=== PATIENT | female | born 1975 | race Asian ===

== ENCOUNTER → 2017-09-17 | Outpatient (CLI) | payer BC ==
[~2017-09-17] MED LIST: CEPH-38 PO; CETI10CA PO; HYDR-3583 PO; RNT150T PO
--- NOTE | 2017-09-17 13:20 | Diagnostic Imaging Report ---
INDICATION: Mastalgia. TECHNIQUE: A targeted ultrasound of the upper-outer aspect of the left breast was performed. FINDINGS: In the 1:30 o'clock position of the left breast 7 cm from the nipple, there is a septated cyst measuring 1 x 0.8 x 1.5 cm. No other discrete solid or cystic masses are appreciated. IMPRESSION: Septated cyst in the left breast. A 6 month followup is recommended to ensure stability. ACR BI-RADS Category 3: Probably benign findings. Result letter will be mailed to the patient. Note: At least 10% of breast cancer is not imaged by mammography. Dictated by: Dictated on workstation # [id number]
--- NOTE | 2017-09-17 13:42 | Diagnostic Imaging Report ---
INDICATION: Breast pain. Comparison made with prior examination 12/09/2015. COMPARISON DATE: FINDINGS: There is a moderate amount of residual fibroglandular tissue bilaterally. There are a few benign type calcifications. There is no dominant mass, spiculated lesion or suspicious calcifications identified. The skin, nipples and axilla are unremarkable. Ultrasound was also performed of the upper outer aspect of the left breast. This demonstrates a slightly complex septated cyst. IMPRESSION: Category 3 probably benign. Six-month followup ultrasound recommended to ensure stability. ACR BI-RADS Category 3: Probably benign findings. Result letter will be mailed to the patient. Note: At least 10% of breast cancer is not imaged by mammography. Dictated by: Dictated on workstation # [id number]
== END ==
LOC: RAD 12:33
PROVIDERS: ATTEND Nurse Practitioner Family
DX: N60.02 Solitary cyst of left breast (principal)
CPT/HCPCS: 76642; 77066

== ENCOUNTER → 2018-09-26 | Outpatient (CLI) | payer BC ==
--- NOTE | 2018-09-26 14:24 | Diagnostic Imaging Report ---
Indication: Routine screening. Comparison is made with prior mammogram from 09/17/2017 and 12/09/2015. 2-D and 3-D bilateral screening mammography was performed with CAD. Both breasts are heterogeneously dense, limiting the sensitivity of mammography. The parenchymal pattern is stable. No mass or malignant appearing microcalcifications are seen. The axillae are unremarkable. Impression: BI-RADS category 1 No mammographic features suspicious for malignancy are identified. ACR BI-RADS Category 1: Negative. Result letter will be mailed to the patient. Note: At least 10% of breast cancer is not imaged by mammography. Dictated by: Dictated on workstation # [id number]
== END ==
LOC: RAD 08:51
PROVIDERS: ATTEND Family Medicine
DX: Z12.31 Encounter for screening mammogram for malignant neoplasm of breast (principal)
CPT/HCPCS: 77067

== ENCOUNTER → 2019-10-19 | Outpatient (CLI) | payer BC ==
--- NOTE | 2019-10-19 09:06 | Diagnostic Imaging Report ---
INDICATION: Routine screening. COMPARISON: 09/26/2018 and 09/17/2017. TECHNIQUE: 2D and 3D bilateral screening mammography was performed with CAD. FINDINGS: Both breasts remain heterogeneously dense, limiting the sensitivity of mammography. No mass or malignant appearing microcalcifications are seen. The axillae are unremarkable. IMPRESSION: No mammographic features suspicious for malignancy are identified. ACR BI-RADS Category 1: Negative. Result letter will be mailed to the patient. Note: At least 10% of breast cancer is not imaged by mammography. Dictated by: Dictated on workstation # [id number]
== END ==
LOC: RAD 07:38
PROVIDERS: ATTEND Family Medicine
DX: Z12.31 Encounter for screening mammogram for malignant neoplasm of breast (principal)
CPT/HCPCS: 77067

== ENCOUNTER → 2020-12-23 | Outpatient (CLI) | payer BC ==
--- NOTE | 2020-12-23 09:09 | Diagnostic Imaging Report ---
INDICATION: Routine screening. Comparison is made with prior mammogram from 10/19/2019 and 09/26/2018. 2-D and 3-D bilateral screening mammography was performed with CAD. Both breasts are heterogeneously dense, limiting the sensitivity of mammography. The parenchymal pattern is stable. No mass or malignant appearing microcalcifications are seen. Axillae are unremarkable. IMPRESSION: BI-RADS Category 1 No mammographic features suspicious for malignancy are identified. ACR BI-RADS Category 1: Negative. Result letter will be mailed to the patient. Note: At least 10% of breast cancer is not imaged by mammography. Dictated by: Dictated on workstation # [id number]
== END ==
LOC: RAD 08:02
PROVIDERS: ATTEND Family Medicine
DX: Z12.31 Encounter for screening mammogram for malignant neoplasm of breast (principal)
CPT/HCPCS: 77063; 77067

== ENCOUNTER → 2022-01-19 | Outpatient (CLI) | payer BC ==
--- NOTE | 2022-01-19 11:36 | Diagnostic Imaging Report ---
INDICATION: Routine screening. COMPARISON is made with prior mammograms from 12/23/2020 and 10/19/2019. 2-D and 3-D bilateral screening mammography was performed with CAD. Both breasts are heterogeneously dense, limiting the sensitivity of mammography. The parenchymal pattern is stable. No mass or malignant-appearing microcalcifications are seen. Axillae are unremarkable. IMPRESSION: BI-RADS Category 1 No mammographic features suspicious for malignancy are identified. ACR BI-RADS Category 1: Negative. Result letter will be mailed to the patient. Note: At least 10% of breast cancer is not imaged by mammography. Dictated by: Dictated on workstation # [id number]
== END ==
LOC: RAD 08:30
PROVIDERS: ATTEND Family Medicine
DX: Z12.31 Encounter for screening mammogram for malignant neoplasm of breast (principal)
CPT/HCPCS: 77063; 77067

== ENCOUNTER 2022-04-18 05:36 | Outpatient (CLI) | payer BC ==
[~2022-04-18] VITALS: Ht 157.5 cm; Wt 66.7 kg
== END 2022-04-18 09:01 | disposition home or self-care (01) ==
LOC: PREOP 05:36
PROVIDERS: ATTEND Internal Medicine
DX: Z01.818 Encounter for other preprocedural examination (principal)

== ENCOUNTER 2022-04-27 07:29 | Day surgery (SDC) | payer BC ==
--- NOTE | 2022-02-21 07:41 | HISTORY AND PHYSICAL ---
DATE OF SERVICE: COLONOSCOPY HISTORY AND PHYSICAL HISTORY OF PRESENT ILLNESS: The patient is a 47-year-old white female referred by Dr. Connelly for her first screening colonoscopy. Risk is difficult to ascertain as she is adopted and does not know anything about her family history. She denies abdominal pain, change in bowel habit, bright red blood per rectum, melena or change in weight. PAST MEDICAL HISTORY: Significant for hyperlipidemia with no known history of coronary artery disease. PAST SURGICAL HISTORY: Significant for a tubal ligation. FAMILY HISTORY: Unknown, see HPI. SOCIAL HISTORY: Employed at [employer]. No past smoking history and no significant alcohol intake reported. REVIEW OF SYSTEMS: CONSTITUTIONAL: Denies night sweats, chills, fever, or change in weight. GASTROINTESTINAL: As noted in the HPI. PULMONARY: No cough, wheezing or shortness of breath noted. CARDIOVASCULAR: No chest pain, orthopnea, PND, pedal edema reported. PHYSICAL EXAMINATION: GENERAL: Reveals a pleasant -appearing female in no acute distress. VITAL SIGNS: Blood pressure 120/70, weight 147 pounds. HEENT: Unremarkable. Sclerae nonicteric. CHEST: Clear to auscultation. CARDIOVASCULAR: Reveals regular rate and rhythm without murmur, S3 or S4. ABDOMEN: Soft, supple without mass, organomegaly or tenderness. She has some hyperpigmentation in the right lower quadrant of the abdomen. EXTREMITIES: Reveal no cyanosis, clubbing or edema. The patient did ask about sore right pinky. She admits that she had been picking at the base of the nail, has been using Neosporin after it became inflamed. She feels that it is getting better. She had some areas of mild tenderness and ecchymosis with minimal erythema. No evidence for abscess formation. No erythema beyond the adjacent area of the nail plate. No evidence for cuticles. ASSESSMENT AND PLAN: 1. The patient will be set up for screening colonoscopy. Prep instructions were given, and questions were answered. Electronic medical record was reviewed. 2. Paronychia, right fifth finger. Continue Neosporin. Discussed salt soaks, return to see Dr. Connelly for any worsening of symptoms and try to avoid traumatizing the nail plate. Job ID: [id number] DocumentID: [id number] Dictated Date: 01/22/2022 11:52:26 Dope Pourer Date: 01/22/2022 12:03:18 Dictated By: OMKAR WAY MD MTDD
[~2022-04-27] VITALS: Ht 157.5 cm; Wt 66.7 kg
[2022-04-27] MEDS ORDERED: LACTATED RINGERS 1,000 ML IV STA (07:38)
[2022-04-27] MEDS ORDERED: MIDAZOLAM 2 MG/2 ML (VERSED) VIAL ONE (07:41)
[2022-04-27] MEDS ORDERED: PROPOFOL INJECTION 50 ML IV ONE (07:42)
[2022-04-27 07:50] VITALS: BP 102/80
[2022-04-27] MEDS ORDERED: LACTATED RINGERS 1,000 ML IV ONE (07:54)
--- NOTE | 2022-04-27 07:57 | Pre-Op Note & Conscious Sedat ---
Pre-Operative Progress Note Date H&P Reviewed: Apr 27, 2022 Time H&P Reviewed: 07:57 History & Physical: H&P Reviewed, Patient Examed, No changes noted Pre-Op Diagnosis: screening Conscious Sedation Pre-Proced ASA Score 2 For ASA 3 and 4: Consider anesthesia and medical clearance. Also, for patients with a history of failed moderate sedation consider anesthesia. Airway Lungs Heart ASA score ASA 1: a normal healthy patient ASA 2: a patient with a mild systemic disease (mid diabetes, controlled hypertension, obesity ASA 3: a patient with a severe systemic disease that limits activity (angina, COPD, prior Myocardial infarction) ASA 4: a patient with an incapacitating disease that is a constant threat to life (CHF, renal failure) ASA 5: a moribund patient not expected to survive 24 hrs. (ruptured aneurysm) ASA 6: a declared brain- patient whose organs are being harvested. For emergent operations, add the letter E after the classification Mallampati Classification Grade 2 Sedation Plan Analgesia, Amnesia, Plan communicated to team members, Discussed options with patient/fam, Discussed risks with patient/fam The patient is an appropriate candidate to undergo the planned procedure, sedation, and anesthesia. The patient immediately re-assessed prior to indication. OMKAR WAY MD Apr 27, 2022 07:57
--- NOTE | 2022-04-27 07:59 | Progress Note-Post Operative ---
Post-Procedure Note Physician (s)/[employer] Treating Unit Operator (s) Physician OMKAR WAY MD Pre-Procedure Diagnosis Pre-Procedure Diagnosis: screening Post-Procedure Diagnosis Post-operative diagnosis: 4mm sessile polyps cauterized from prox ascending and mid-transverse via hot forceps otherwise normal colon. OMKAR WAY MD Apr 27, 2022 07:59
[2022-04-27 09:05] VITALS: BP 93/55
--- NOTE | 2022-04-27 09:08 | Progress Note-Post Operative ---
Post-Procedure Note Physician (s)/Marksmanship Instructor (s) Physician OMKAR WAY MD Pre-Procedure Diagnosis Pre-Procedure Diagnosis: screening Post-Procedure Diagnosis Post-operative diagnosis: 2 polyps removed by hot forcepts mid-transverse and prox-ascending colon otherwise normal colon OMKAR WAY MD Apr 27, 2022 09:08
[2022-04-27 09:10] VITALS: BP 95/58
[2022-04-27 09:15] VITALS: BP 97/61
[2022-04-27 09:40] VITALS: BP 97/61
--- NOTE | 2022-04-27 13:03 | Anesthesia-General Post-Op ---
MAC Patient Condition Mental Status/LOC: Same as Preop Cardiovascular: Satisfactory Nausea/Vomiting: Absent Respiratory: Satisfactory Pain: Controlled Complications: Absent Post Op Complications Complications None Follow Up Care/Instructions Patient Instructions None needed. Anesthesiology Discharge Order Discharge Order Patient is doing well, no complaints, stable vital signs, no apparent adverse anesthesia problems. No complications reported per nursing. CAMI GONZALEZ CRNA Apr 27, 2022 13:03
--- NOTE | 2022-04-27 15:49 | OPERATIVE REPORT ---
DATE OF SERVICE: COLONOSCOPY SUMMARY INDICATION FOR THE PROCEDURE: Screening colonoscopy. The patient was placed in the left lateral decubitus position. Prior to undergoing colonoscopy, digital rectal evaluation was performed. Anal sphincter tone was normal and the perianal reflexes intact. No abnormalities were noted on digital inspection of anal canal or distal rectal vault. The colonoscope was then inserted into the rectum and under direct visualization advanced to cecum. The cecum was identified by identification of ileocecal valve and cecal strap. Photographic documentation was obtained. Careful inspection was made as colonoscope withdrawn. Quality of prep was good. FINDINGS: No evidence for internal or external hemorrhoids and the rectum, sigmoid colon, descending colon, splenic flexure were unremarkable. Present in the mid transverse colon was a diminutive 3 mm sessile polyp. It was photographed and biopsied and ablated with no blood loss. The remainder of the transverse colon, hepatic flexure was unremarkable. Present in the proximal ascending colon was 2 mm similar sessile polyp. It was biopsied and ablated with no blood loss. The remainder of the ascending colon and cecum were unremarkable. ASSESSMENT: Two diminutive polyps were removed, one from the mid transverse, the other one from the proximal ascending colon under good prep conditions via hot forceps with no blood loss. This is otherwise normal colonoscopy to the cecum. As long as there was no surprise on histopathology report, would advocate consideration for repeat screening colonoscopy in 10 years. Job ID: [id number] DocumentID: [id number] Dictated Date: 04/27/2022 09:03:34 Probation Worker Date: 04/27/2022 15:47:30 Dictated By: OMKAR WAY MD
== END 2022-04-27 09:43 | disposition home or self-care (01) ==
LOC: ENDO 07:29
PROVIDERS: ATTEND Internal Medicine
DX: Z12.11 Encounter for screening for malignant neoplasm of colon (principal); D12.3 Benign neoplasm of transverse colon; K63.5 Polyp of colon; L03.011 Cellulitis of right finger
CPT/HCPCS: 84703; 88305

== ENCOUNTER → 2023-02-13 | Outpatient (CLI) | payer BC ==
--- NOTE | 2023-02-13 20:19 | Diagnostic Imaging Report ---
INDICATION: Routine screening. COMPARISON: Prior mammograms from 01/19/2022 and 12/23/2020. EXAMINATION: 2D and 3D bilateral screening mammography was performed with CAD. The current study was also evaluated with a Computer Aided Detection (CAD) system. FINDINGS: Both breasts are heterogeneously dense, limiting the sensitivity of mammography. The parenchymal pattern is stable. No mass or malignant-appearing microcalcifications are seen. Axillae are unremarkable. IMPRESSION: No mammographic features suspicious for malignancy are identified. ACR BI-RADS Category 1: Negative. Result letter will be mailed to the patient. Note: At least 10% of breast cancer is not imaged by mammography. Dictated by: Dictated on workstation # [id number]
== END ==
LOC: RAD 09:28
PROVIDERS: ATTEND Family Medicine
DX: Z12.31 Encounter for screening mammogram for malignant neoplasm of breast (principal)
CPT/HCPCS: 77063; 77067